=== PATIENT | female | born 1965 | race African-American/Black ===

== ENCOUNTER 2023-10-27 00:25 | Emergency (ER) | payer OTHER ==
[~2023-10-27] VITALS: Ht 154.9 cm; Wt 91.0 kg
[2023-10-27 00:27] VITALS: O2SAT 100
[2023-10-27] MEDS: SODIUM CHLORIDE 0.9% 1,000 ML IV SCH (01:43)
[2023-10-27] MEDS: DIPHENHYDRAMINE 50MG/ML VIAL IV ONE (01:43)
[2023-10-27] MEDS: EPINEPHRINE 1:1000 1 MG/ML AMP SUBCUT ONE (01:43)
[2023-10-27] MEDS: METHYLPREDNISOLONE SOD SUCC 125MG/2ML (ACT-O-VIAL) IV ONE (01:43)
[2023-10-27] MEDS ORDERED: EPIN0.3P3 IM (05:13)
[2023-10-27 05:30] VITALS: BP 133/77; PULSE 74; RESP 18; TEMP 98.6
== END 2023-10-27 05:33 | disposition home or self-care (01) ==
LOC: ER 00:25
DX: T78.3XXA Angioneurotic edema, initial encounter (principal)
CPT/HCPCS: 96372; 96374; 96375; 99291; J1200; J3490; J2919; Z7610 ×3

== ENCOUNTER 2024-07-22 03:00 | Emergency (ER) | payer OTHER ==
[~2024-07-22] VITALS: Ht 154.9 cm; Wt 87.0 kg
[~2024-07-22 03:00] MED LIST: EPIN0.3P3 IM
[2024-07-22 03:19] VITALS: O2SAT 100
[2024-07-22] MEDS: PREDNISONE 20MG TABLET PO ONE (04:36)
[2024-07-22] MEDS: EPINEPHRINE 1:1000 1 MG/ML AMP INJ ONE (04:41)
[2024-07-22 05:46] VITALS: BP 149/70; PULSE 62; RESP 12; O2SAT 100
== END 2024-07-22 05:49 | disposition home or self-care (01) ==
LOC: ER 03:00
DX: T78.3XXA Angioneurotic edema, initial encounter (principal); T78.40XA Allergy, unspecified, initial encounter; I10 Essential (primary) hypertension; Z88.8 Allergy status to other drugs, medicaments and biological substances; Y92.89 Other specified places as the place of occurrence of the external cause
CPT/HCPCS: 99283; 96372; J7512; J3490